=== PATIENT | female | born 1945 | race Asian ===

== ENCOUNTER 2018-10-01 08:08 | Day surgery (SDC) | payer OTHER | END 2018-10-01 10:05 | disposition home or self-care (01) | LOC: OR 08:08 | PROC: 3E0R33Z Introduction of Anti-inflammatory into Spinal Canal, Percutaneous Approach (ICD-10-PCS; principal; 2018-10-01) | PROC: B01BYZZ Fluoroscopy of Spinal Cord using Other Contrast (ICD-10-PCS; 2018-10-01) | DX: M54.16 Radiculopathy, lumbar region (principal) | CPT/HCPCS: J1020 ==

== ENCOUNTER 2018-11-26 09:53 | Day surgery (SDC) | payer OTHER ==
[~2018-11-26] VITALS: Ht 175.3 cm; Wt 120.7 kg
== END 2018-11-26 12:25 | disposition home or self-care (01) ==
LOC: OR 09:53 → EDSEX 09:53 → OR 12:25
PROC: 3E0R33Z Introduction of Anti-inflammatory into Spinal Canal, Percutaneous Approach (ICD-10-PCS; principal; 2018-11-26)
PROC: B01BYZZ Fluoroscopy of Spinal Cord using Other Contrast (ICD-10-PCS; 2018-11-26)
DX: M51.16 Intervertebral disc disorders with radiculopathy, lumbar region (principal)
CPT/HCPCS: J1020

== ENCOUNTER 2019-07-21 08:46 | Day surgery (SDC) | payer OTHER | END 2019-07-21 11:00 | disposition home or self-care (01) | LOC: OR 08:46 | PROC: 3E0T3BZ Introduction of Anesthetic Agent into Peripheral Nerves and Plexi, Percutaneous Approach (ICD-10-PCS; principal; 2019-07-21) | PROC: 3E0T33Z Introduction of Anti-inflammatory into Peripheral Nerves and Plexi, Percutaneous Approach (ICD-10-PCS; 2019-07-21) | DX: M47.817 Spondylosis without myelopathy or radiculopathy, lumbosacral region (principal) | CPT/HCPCS: J1100; J2001 ==

== ENCOUNTER 2019-08-04 08:28 | Day surgery (SDC) | payer OTHER | END 2019-08-04 10:09 | disposition home or self-care (01) | LOC: OR 08:28 | PROC: 3E0T3BZ Introduction of Anesthetic Agent into Peripheral Nerves and Plexi, Percutaneous Approach (ICD-10-PCS; principal; 2019-08-04) | PROC: 3E0T33Z Introduction of Anti-inflammatory into Peripheral Nerves and Plexi, Percutaneous Approach (ICD-10-PCS; 2019-08-04) | DX: M47.817 Spondylosis without myelopathy or radiculopathy, lumbosacral region (principal) | CPT/HCPCS: J1100; J2001 ==

== ENCOUNTER 2020-01-05 09:39 | Day surgery (SDC) | payer OTHER | END 2020-01-05 12:29 | disposition home or self-care (01) | LOC: OR 09:39 | PROC: 3E0T3TZ Introduction of Destructive Agent into Peripheral Nerves and Plexi, Percutaneous Approach (ICD-10-PCS; principal; 2020-01-05) | PROC: BR16YZZ Fluoroscopy of Lumbar Facet Joint(s) using Other Contrast (ICD-10-PCS; 2020-01-05) | DX: M47.816 Spondylosis without myelopathy or radiculopathy, lumbar region (principal) ==

== ENCOUNTER 2020-03-15 09:08 | Day surgery (SDC) | payer OTHER | END 2020-03-15 10:43 | disposition home or self-care (01) | LOC: OR 09:08 | PROC: 3E0T3TZ Introduction of Destructive Agent into Peripheral Nerves and Plexi, Percutaneous Approach (ICD-10-PCS; principal; 2020-03-15) | PROC: BR16YZZ Fluoroscopy of Lumbar Facet Joint(s) using Other Contrast (ICD-10-PCS; 2020-03-15) | DX: M47.817 Spondylosis without myelopathy or radiculopathy, lumbosacral region (principal) | CPT/HCPCS: J2001 ==